=== PATIENT | female | born 1985 | race Caucasian/White ===

== ENCOUNTER → 2018-11-25 | Outpatient (REF) | payer OTHER ==
[2018-11-29 14:20] LABS: HPV HYBRID CAPTURE II Negative (Negative)
== END ==
LOC: M LAB REF 17:07
PROVIDERS: ATTEND Advanced Practice Midwife
DX: Z12.4 Encounter for screening for malignant neoplasm of cervix (principal)
CPT/HCPCS: 87624; G0123

== ENCOUNTER 2018-12-27 14:49 | Day surgery (SDC) | payer OTHER ==
[~2018-12-27] VITALS: Ht 160 cm; Wt 82.1 kg
[~2018-12-27 14:49] MED LIST: LR 1,000 ML IV ONE
[2018-12-27] MEDS ORDERED: TH DTAB2 PO (15:03)
[2018-12-27 15:13] LABS: HEMATOCRIT 40.1 % (36.0-47.0); HEMOGLOBIN 13.3 g/dl (12.0-15.5); MEAN CORPUSCULAR HEMOGLOBIN 29.9 pg (27.0-33.0); MEAN CORPUSCULAR HGB CONC 33.2 g/dl (32.0-36.5); MEAN CORPUSCULAR VOLUME 90.1 fl (80.0-96.0); PLATELET COUNT, AUTOMATED 293 10^3/uL (150-450); RED BLOOD COUNT 4.45 10^6/uL (4.00-5.40); WHITE BLOOD COUNT 10.7 10^3/uL (4.0-10.0)
[2018-12-27] MEDS ORDERED: fentaNYL 100 MCG/2 ML INJECTION (J3010) As Ordered ONE (15:28)
[2018-12-27] MEDS ORDERED: PROPOFOL 500 MG/50 ML VIAL As Ordered ONE (15:28)
[2018-12-27] MEDS ORDERED: LIDOCAINE 2% INJ 100 MG/5 ML SDV (FOR ANES.) As Ordered ONE (15:28)
[2018-12-27] MEDS ORDERED: MIDAZOLAM INJ 2 MG/2 ML VIAL (J2250) As Ordered ONE (15:28)
[2018-12-27] MEDS ORDERED: ONDANSETRON 4MG/2ML VIAL (J2405) As Ordered ONE (15:29)
[2018-12-27] MEDS ORDERED: dexameTHASONE 4 MG/ML 1ML VIAL (J1100) As Ordered ONE (15:29)
[2018-12-27] MEDS ORDERED: LIDOCAINE 1% SDV INJ 30 ML VIAL As Ordered ONE (15:49)
[2018-12-27] MEDS ORDERED: KETOROLAC 60 MG/2 ML VIAL (J1885) As Ordered ONE (16:00)
[2018-12-27] MEDS ORDERED: ACETAMINOPHEN 1000MG 100ML IV BTL (OFIRMEV) (J0131 PER 10MG) As Ordered ONE (16:01)
[2018-12-27] MEDS ORDERED: DOXYCYCLINE HYCLATE 100 MG TAB As Ordered ONE (16:41)
[2018-12-27] MEDS ORDERED: ACETAMINOPHEN 500 MG TAB PO ONE (16:45)
[2018-12-27] MEDS ORDERED: LR 1,000 ML IV SCH (16:45)
[2018-12-27] MEDS ORDERED: DOXYCYCLINE HYCLATE 100 MG TAB PO ONE (16:45)
[2018-12-27 17:13] VITALS: BP 117/58
--- NOTE | 2018-12-28 11:15 | RO ---
DATE OF PROCEDURE: 12/27/2018 PREPROCEDURE DIAGNOSIS: Missed 7 weeks gestation. POSTPROCEDURE DIAGNOSIS: Missed 7 weeks gestation. PROCEDURE: Dilatation and curettage (D C). SURGEON: Dr. Jim Freeman [employer] TUTOR: ANESTHESIA: Local sedation. ESTIMATED BLOOD LOSS: 20 mL. URINE OUTPUT: 250 mL. FINDINGS: Moderate amounts of products of conception. OPERATIVE SUMMARY: The patient was taken to operating room where IV sedation was given. She was prepped and draped in a sterile fashion in the dorsal lithotomy position. The bladder was emptied with a catheter. A speculum was placed in the vagina. The cervix was injected circumferentially with 20 mL of 1% lidocaine. The anterior lip of the cervix was grasped with tenaculum. The cervix was dilated with taper dilators. A #9 mm suction curette was placed through the internal os. The suction device was then activated and the curette was gently rotated, and products of conception were noted coming through the suction tube. Sharp curettage was performed. Uterine cavity was deemed to be empty. Good hemostasis was noted. All instruments were removed. Sponge and instrument counts were correct. The patient went to the recovery room in stable condition.
== END 2018-12-27 17:15 | disposition home or self-care (01) ==
LOC: M SDC 14:49
PROVIDERS: ATTEND Specialist
DX: O02.1 Missed abortion (principal)
CPT/HCPCS: 36415; 59820; 85027; 86850; 86900; 86901; 88305; J0131; J1100; J1885; J2250; J2405; J3010

== ENCOUNTER → 2019-12-22 | Outpatient (REF) | payer OTHER ==
[~2019-12-22] MED LIST changes: -LR 1,000 ML IV ONE; +TH DTAB2 PO
== END ==
LOC: M SFHCWAGY 13:21
PROVIDERS: ATTEND Specialist
DX: Z12.4 Encounter for screening for malignant neoplasm of cervix (principal)
CPT/HCPCS: 87624; G0123

== ENCOUNTER → 2020-02-28 | Outpatient (REF) | payer OTHER ==
[2020-02-28 17:59] LABS: HEMATOCRIT 38.9 % (36.0-47.0); MEAN CORPUSCULAR HEMOGLOBIN 30.2 pg (27.0-33.0); MEAN CORPUSCULAR HGB CONC 33.4 g/dl (32.0-36.5); MEAN CORPUSCULAR VOLUME 90.5 fl (80.0-96.0); PLATELET COUNT, AUTOMATED 293 10^3/uL (150-450); WHITE BLOOD COUNT 10.7 10^3/uL (4.0-10.0)
[2020-02-28 19:02] LABS: HEPATITIS C VIRUS ABY INDEX < 0.0 INDEX (<0.8); HIV 1&2 SCREEN CENTAUR NEGATIVE (NEGATIVE)
[2020-02-28 19:35] LABS: CHLAMYDIA DNA AMPLIFICATION NEGATIVE (NEGATIVE); GC DNA AMPLIFICATION NEGATIVE (NEGATIVE)
== END ==
LOC: M PLALAB 15:43
PROVIDERS: ATTEND Advanced Practice Midwife
DX: Z3A.09 9 weeks gestation of pregnancy (principal)

== ENCOUNTER → 2020-03-13 | Outpatient (CLI) | payer OTHER | LOC: M PLALAB 14:42 | PROVIDERS: ATTEND Advanced Practice Midwife | DX: O09.521 Supervision of elderly multigravida, first trimester (principal) ==

== ENCOUNTER → 2020-04-26 | Outpatient (CLI) | payer OTHER | LOC: M WHC 15:16 | PROVIDERS: ATTEND Obstetrics & Gynecology | DX: Z34.92 Encounter for supervision of normal pregnancy, unspecified, second trimester (principal); Z3A.17 17 weeks gestation of pregnancy; Z53.9 Procedure and treatment not carried out, unspecified reason ==

== ENCOUNTER → 2020-05-17 | Outpatient (CLI) | payer OTHER ==
--- NOTE | 2020-05-17 17:01 | REP ---
INDICATION: ANATOMY. COMPARISON: None. TECHNIQUE: Real-time sonographic evaluation of the gravid uterus performed. FINDINGS: Estimated gestational age is20 weeks 1 day, EDC 10/03/2020. Today's measurements indicate appropriate growth. Presentation: Variable Placenta posterior, grade 0, without evidence of placenta previa. heart rate is recorded at 143 beats per minute. Amniotic fluid is subjectively normal. Closed cervical length is measured at 3.3 cm. Biometry chart: BPD: 45 mm, 19 weeks 3 days, 32nd percentile. HC: 173 mm, 19 weeks 6 days, 40th percentile AC: 149 mm, 20 weeks 1 days, 50th percentile Femur length: 32 mm, 19 weeks 6 days, is 42nd percentile HC to AC ratio: 1.16, normal range 1.06-1.24. Estimated weight: 324g, 36th percentile. anatomy: Cranium: Grossly normal Lateral Ventricles/Choroid Plexus: Grossly normal Posterior Fossa/Cerebellum: Grossly normal Nose/lips/profile: Grossly normal Four chamber heart: Grossly normal Right ventricular outflow tract: Grossly normal Left ventricular outflow tract: Grossly normal Left-sided stomach: Grossly normal Kidneys: Grossly normal Bladder: Grossly normal Cord Insertion: Grossly normal 3 vessel cord: Grossly normal Spine: Grossly normal IMPRESSION: Viable single intrauterine gestation as above. <Electronically signed by Serafin Oreilly > 05/17/20 [id number]
== END ==
LOC: M WHC 15:03
PROVIDERS: ATTEND Obstetrics & Gynecology
DX: Z36.89 Encounter for other specified antenatal screening (principal); Z3A.17 17 weeks gestation of pregnancy